=== PATIENT | female | born 1940 ===

== ENCOUNTER 2020-12-01 21:55 | Inpatient (IN) | payer MEDICARE ==
[2020-12-01] VITALS (8 sets, daily range): BP systolic 65–140; BP diastolic 38–96
[~2020-12-01] VITALS: Ht 167.6 cm; Wt 59.6 kg
[2020-12-01 22:49] LABS: BASOPHILS 0.4 % (0-2); EOSINOPHILS 1.2 % (0-7); HEMATOCRIT 34.2 % (36.0-48.0); HEMOGLOBIN 10.8 g/dL (12-16); LYMPHOCYTES 14.7 % (15-50); MCH 27.9 pg (26.0-34.0); MCHC 31.6 g/dL (31.0-37.0); MCV 88.1 fL (80.0-100.0); MEAN PLATELET VOLUME 7.6 fL (7.4-10.4); MONOCYTES 6.5 % (2-11); NEUTROPHILS 77.2 % (40-80); PLATELET COUNT 430 10x3/uL (130-400); RBC 3.88 10x6/uL (4.00-5.40); WBC 18.8 10x3/uL (4.8-10.8)
[2020-12-01] MEDS ORDERED: BAYER ASPIRIN325 MG PO (22:50)
[2020-12-01] MEDS ORDERED: PROAIR HFA8.5 G1 INH (22:51)
[2020-12-01] MEDS ORDERED: SYMBICORT 16010.2 GM INH (22:51)
[2020-12-01] MEDS ORDERED: NITROSTAT0.4 MG SL (22:52)
[2020-12-01] MEDS ORDERED: MULTI-DAY VITAM1 TAB PO (22:52)
[2020-12-01] MEDS ORDERED: RESTORIL15 MG PO (22:52)
[2020-12-01] MEDS ORDERED: IPRAT-ALBUT 0.5-3 ML UPD (22:58)
[2020-12-01] MEDS ORDERED: MELATONIN10 M1 PO (22:59)
[2020-12-01] MEDS ORDERED: TEMAZEPAM30 MG PO (22:59)
[2020-12-01] MEDS ORDERED: COLACE100 MG PO (23:00)
[2020-12-01] MEDS ORDERED: INCRUSE ELLI62.5 MCG INH (23:00)
[2020-12-01] MEDS ORDERED: ZYRTEC10 MG PO (23:00)
[2020-12-01] MEDS ORDERED: VENTOLIN HFA [SP8 GM INH (23:01)
[2020-12-01] MEDS ORDERED: ATARAX 25 MG TA25 MG PO (23:01)
[2020-12-01] MEDS ORDERED: SPIRIVA RESPIMAT4 GM INH (23:01)
[2020-12-01] MEDS ORDERED: LASIX40 MG PO (23:02)
[2020-12-01] MEDS ORDERED: ROPINIROLE HCL0.5 MG PO (23:02)
[2020-12-01] MEDS ORDERED: TRIAMCINOLONE A60 M1 TOPICAL (23:03)
[2020-12-01] MEDS ORDERED: PROTONIX40 MG PO (23:03)
[2020-12-01] MEDS ORDERED: PREDNISONE10 MG PO (23:03)
[2020-12-01] MEDS ORDERED: ZYVOX600 MG PO (23:04)
[2020-12-01] MEDS ORDERED: HYDROCODON-ACE1 EAC7 PO (23:05)
[2020-12-01 23:17] LABS: ANION GAP 14.3 mmol/L (8-16); CALCIUM 8.7 mg/dL (8.5-10.1); CARBON DIOXIDE 30.8 mmol/L (21.0-32.0); CREATININE - SERUM 3.1 mg/dL (0.6-1.3); POTASSIUM - SERUM 4.1 mmol/L (3.5-5.1)
[2020-12-01 23:37] LABS: ALBUMIN 2.4 g/dL (3.4-5.0); BILIRUBIN - TOTAL 0.65 mg/dL (0.2-1.3); PROTEIN - SERUM 6.4 g/dL (6.4-8.2)
[2020-12-01 23:39] LABS: TROPONIN-I 0.716 ng/mL (0.000-0.060)
[2020-12-02] VITALS (94 sets, daily range): BP systolic 57–142; BP diastolic 27–106; Ht 167.6 cm; Wt 59.6 kg
--- NOTE | 2020-12-02 00:21 | NUR ---
RECEIVED PATIENT FROM [facility] VIA EMS. PATIENT BROUGHT IN BY STRETCHER. ALERT, ORIENTED X 2. LOW BP, SEE FLOWSHEET. NOREPINEPHRINE STARTED BY EDP. ALSO EPINEPHRINE. HR IS SR 80S-90S. SAT 100%. PATIENT PLACED ON NON REBREATHER. UNABLE TO TOLERATE SWITCHING TO NC AT THIS TIME
--- NOTE | 2020-12-02 00:30 | NUR ---
PATIENT ARRIVED FROM ER. PATIENT IS ALERT AND ORIENTED, RESTING COMFORTABLY IN BED. PATIENT REMAINS ON A NRB AT 15L O2. RESPIRATIONS ARE SHALLOW. AT THIS TIME PATIENT HAS NO S/S OF DISTRESS. NO C/O PAIN. PATIENT WANTED TO MAKE SURE SHE HAD HER CALL LIGHT SO SHE DOESN'T MISS [facility]. NEEDS MET. CALL LIGHT WITHIN REACH. WILL CPOC.
--- NOTE | 2020-12-02 00:51 | NUR ---
DR SABILLON-CARDIOLOGY , DR. VIVEROS-NEPHROLOGY, AND DR. MOHAN-PULMONOLOGY NOTIFIED OF CONSULTS
[2020-12-02] MEDS ORDERED: VENTOLIN HFA [SP8 GM INH (00:55)
[2020-12-02 05:40] LABS: % SATURATION 7 % (15-55); IRON 10 ug/dl (35-150); TOTAL IRON BIND CAPACITY 128 ug/dl (260-445); UNSAT IRON BIND CAPACITY 118 ug/dl (150-375)
[2020-12-02 06:09] LABS: CKMB 2.7 U/L (0.0-3.6); CREATINE KINASE 29 UL (21-215); FERRITIN 121 ng/mL (3-244); MAGNESIUM - SERUM 1.5 mg/dL (1.8-2.4); TROPONIN-I 0.744 ng/mL (0.000-0.060)
[2020-12-02 06:25] LABS: APTT 31.2 SECONDS (22.8-39.4)
[2020-12-02 06:26] LABS: INR 1.32 (0.85-1.17); PROTIME 15.2 SECONDS (11.6-15.0)
--- NOTE | 2020-12-02 07:00 | NUR ---
RECEIVED BEDSIDE REPORT AND ASSUMED CARE OF PATIENT. PATIENT RESTING QUIETLY, WITH SNORING RESPIRATIONS, EASILY AROUSED BY VOICE, AND ALERT AND ORIENTED X 4. SPO2 - 97% ON NRB AT 15 LPM, CM - SR WITH OCCASSIONAL PVC'S. IV 20 GA TO RIGHT FA INFUSING NS AT 75 ML/HR, IV 20 GA TO LEFT FA NSL, CVL TO RIGHT GROIN INFUSING EPI AT 1 MCG/MIN (6ML/HR), LEVOPHED AT 30 MCG/MIN (56.3 ML/HR) AND NEOSYNEPHRINE AT 50 MCG/MIN (37.5 ML/HR). SCDS IN PLACE. HEAD TO TOE ASSESSMENT COMPLETED.
--- NOTE | 2020-12-02 07:33 | NUR ---
PATIENT ATTEMPTED ON HIGH FLOW NC AT 15 LPM, HOWEVER DESAT TO 84% AND NRB AT 15 LPM PLACED BACK ON PATIENT.
--- NOTE | 2020-12-02 09:21 | NUR ---
DR. MOHAN AT ROOM UPDATED AND EXAMINES PATIENT.
--- NOTE | 2020-12-02 09:32 | NUR ---
BENNY CERDA APRN AT ROOM FOR CARDIOLOGY CONSULT, UPDATED AND EXAMINES PATIENT.
--- NOTE | 2020-12-02 10:25 | NUR ---
SPOKE TO PATIENTS DAUGHTER JENISE WHO STATED PATIENT HAS HISTORY OF CHF AND COPD AND WAS JUST DISCHARGED FROM A HOSPITAL LAST WEEK FOR PNEUMONIA. OVER PAST WEEK HAS HAD INCREASED SWELLING TO HER LOWER EXTREMITIES.
--- NOTE | 2020-12-02 10:27 | NUR ---
MAY CATH PLACED AND UA/CULTURE SENT TO LAB.
--- NOTE | 2020-12-02 10:30 | NUR ---
DR. MOHAN PAGED TO NOTIFY OF D-DIMER OF 4.50.
[2020-12-02 10:35] LABS: BILIRUBIN NEGATIVE (NEGATIVE); KETONE NEGATIVE (NEGATIVE); NITRITE NEGATIVE (NEGATIVE); UROBILINOGEN NORMAL mg/dL (< 2)
[2020-12-02 10:37] LABS: BACTERIA FEW HPF (NONE SEEN); GRANULAR CAST RARE LPF (NONE SEEN); SQUAMOUS EPITHELIAL 0-5 HPF (0-4); WHITE CELLS - URINE 2 HPF (0-4)
--- NOTE | 2020-12-02 10:41 | NUR ---
DR. MOHAN RETURNED PAGE AND NOTIFIED OF D-DIMER 4.5 AND CONVERSATION WITH DAUGHTER, TO PLACE PATIENT ON BIPAP 14/8 AND 40%.
[2020-12-02 10:44] LABS: UDS - AMPHET NEGATIVE QUAL (NEGATIVE); UDS - BARB NEGATIVE QUAL (NEGATIVE); UDS - BENZO POSITIVE QUAL (NEGATIVE); UDS - COCAINE NEGATIVE QUAL (NEGATIVE); UDS - OPIATE POSITIVE QUAL (NEGATIVE); UDS - PCP NEGATIVE QUAL (NEGATIVE); UDS - THC NEGATIVE QUAL (NEGATIVE)
[2020-12-02 11:06] LABS: CKMB 3.2 U/L (0.0-3.6); CREATINE KINASE 35 UL (21-215); TROPONIN-I 0.723 ng/mL (0.000-0.060)
--- NOTE | 2020-12-02 11:06 | NUR ---
REASSESSMENT COMPLETED. PATIENT ON BIPAP 26/02 AT 60% WITH SPO2 - 92%, RR - 24, HR 118, ST ON CM, SCDS IN PLACE. MAY HAS BEEN PLACED WITH 550 STRAW COLORED UOP NOTED. AMIODARONE GTT STARTED PER CARDIOLOGY AT 1 MG/HR (33.3 ML/HR) FOR SIX HOURS THEN TO DECREASE TO 0.5 MG/HR AT 1700.
[2020-12-02 11:11] LABS: BASOPHILS 0.2 % (0-2); EOSINOPHILS 0.1 % (0-7); HEMATOCRIT 34.7 % (36.0-48.0); HEMOGLOBIN 10.7 g/dL (12-16); LYMPHOCYTES 11.3 % (15-50); MCH 27.8 pg (26.0-34.0); MCHC 30.9 g/dL (31.0-37.0); MEAN PLATELET VOLUME 8.1 fL (7.4-10.4); MONOCYTES 5.8 % (2-11); NEUTROPHILS 82.6 % (40-80); PLATELET COUNT 457 10x3/uL (130-400); RBC 3.85 10x6/uL (4.00-5.40); RDW 15.3 % (11.5-14.5); WBC 19.5 10x3/uL (4.8-10.8)
[2020-12-02 11:12] LABS: MCV 90.1 fL (80.0-100.0)
[2020-12-02 11:20] LABS: ANION GAP 19.8 mmol/L (8-16); CALCIUM 8.7 mg/dL (8.5-10.1); CARBON DIOXIDE 24.6 mmol/L (21.0-32.0); POTASSIUM - SERUM 4.4 mmol/L (3.5-5.1)
[2020-12-02 17:32] LABS: CKMB 3.3 U/L (0.0-3.6); CREATINE KINASE 66 UL (21-215)
[2020-12-02 17:33] LABS: TROPONIN-I 0.548 ng/mL (0.000-0.060)
--- NOTE | 2020-12-02 19:30 | NUR ---
REPORT REC'D AND CARE ASSUMED, REC'D PT ON BIPAP AT 80%, AWAKENS TO VERBAL STIMULI, CONFUSED TO HOW SHE GOT HERE, EXPLAINED TO PT HOW SHE GOT HERE, PT ASKING ABOUT HER FAMILY, RIGHT A/C PIV SALINE LOCKED, LEFT A/C PIV SALINE LOCKED, RIGHT GROIN TL, SEE FLOWSHEET FOR GTTS AND RATES, MAY PATENT DRAINING CLEAR YELLOW URINE, GENERALIZED EDEMA, SCAB/SORES NOTED TO RIGHT KNEE AND RIGHT GREAT TOE, BED IN LOW POSITION, CALL LIGHT IN REACH.
--- NOTE | 2020-12-02 20:23 | NUR ---
SPOKE WITH PT'S DAUGHTER JENISE WHO IS LEGALLY BLIND, DAUGHTER STATED SHE WOULD GET HERE WHEN SHE COULD FIND A RIDE. PT'S OLDEST SON PERCY DO CALLED AND SAID HE WOULD CALL BACK IN THE MORNING, HE WILL BE HERE TO VISIT WHEN HE CAN FIND A WAY DOWN HERE, UPDATES PROVIDED TO BOTH CHILDREN AND PT INFORMED OF THEIR PHONE CALLS.
--- NOTE | 2020-12-02 23:00 | NUR ---
PT WANTING A DRINK OF WATER, BIPAP REMOVED BRIEFLY TO ALLOW FOR PT TO HAVE A SIP OF WATER, O2 SAT DROPPED TO LOW 80'S AFTER ONLY A FEW MINUTES, PT STATES " I KNOW I AM DYING LET'S JUST GET IT OVER WITH", EXPLAINED TO PT THAT CONDITION HAD SLIGHTLY IMPROVED FROM THE TIME SHE WAS ADMITTED, ACCESSORY MUSCLES IN USE WHILE OFF BIPAP, BIPAP PLACED BACK ON PATIENT AND PT REPOSITIONED IN BED, WILL MONITOR FOR CHANGES.
[2020-12-03] VITALS (53 sets, daily range): BP systolic 74–126; BP diastolic 54–86
--- NOTE | 2020-12-03 01:30 | NUR ---
PT WANTING TO KNOW THE CURRENT TIME, INFORMED PT OF TIME AND PT ASSISTED WITH REMOTE CONTROL TO WATCH TV, SEEMS IN BETTER SPIRITS AT THIS ITME, BP 85-100 AT TIMES, CURRENT DRIPS CONTINUE PREVIOUSLY NOTED.
--- NOTE | 2020-12-03 05:20 | NUR ---
COMPLETE BATH AND LINEN CHANGE PROVIDED, PT REPOSITIONED UP IN BED FOR COMFORT, SIPS OF WATER PROVIDED, BED IN LOW POSITION, SR UP X 2 ,CALL LIGHT IN REACH
--- NOTE | 2020-12-03 07:00 | NUR ---
ASSESSMENT COMPLETE, PT SOB AT THIS TIME, O2 SAT 90%, ATTEMPTED TO PLACE PATIENT BACK ON BIPAP, PT REFUSING BIPAP
[2020-12-03 08:24] LABS: BASOPHILS 0.3 % (0-2); EOSINOPHILS 0.4 % (0-7); HEMATOCRIT 33.5 % (36.0-48.0); HEMOGLOBIN 10.5 g/dL (12-16); LYMPHOCYTES 10.5 % (15-50); MCH 27.9 pg (26.0-34.0); MCHC 31.5 g/dL (31.0-37.0); MCV 88.6 fL (80.0-100.0); MEAN PLATELET VOLUME 7.5 fL (7.4-10.4); MONOCYTES 5.4 % (2-11); NEUTROPHILS 83.4 % (40-80); PLATELET COUNT 454 10x3/uL (130-400); RBC 3.78 10x6/uL (4.00-5.40); RDW 15.2 % (11.5-14.5); WBC 15.9 10x3/uL (4.8-10.8)
--- NOTE | 2020-12-03 08:30 | NUR ---
PT STILL SOB, STILL REFUSING TO WEAR BIPAP
--- NOTE | 2020-12-03 08:32 | EC ---
PATIENT:CANDACE DO DATE OF SERVICE: 12/01/20 SEX: F MEDICAL RECORD: [id number] DATE OF : 44 LOCATION:[facility] D230 AGE OF PATIENT: 80 ADMISSION DATE: 12/01/20 REFERRING PHYSICIAN: INTERPRETING PHYSICIAN: HUE TAMAYO MD ECHOCARDIOGRAM REPORT ECHO CHARGES 4 ECHO COMPLETE Date: 12/02/20 CLINICAL DIAGNOSIS: CHF ECHOCARDIOGRAPHIC MEASUREMENTS (adult normal given) AC root (d.<3.7cm) 3.1 cm LV Septum d (<1.2 cm> 1.3 cm Valve Excursion 1.8 cm LV Septum (systole) 1.7 cm Left Atria (s.<4.0cm> 3.7 cm LVPW d(<1.2cm) 1.0 cm RV (d.<2.3cm) 2.7 cm LVPW (sytole) 1.3 cm LV diastole(<5.6CM) 4.5 cm MV E-F(>70mm/sec) cm LV systole 3.4 cm LVOT Diameter 1.4 cm MV exc.(>10mm) 1.2 cm Est.ejection fraction (50-75%) % DOPPLER: LVIT cm/sec A 164 cm/sec E 135 cm/sec LA cm/sec RVSP 81 mmHg LVOT 121 cm/sec AOP1/2T m/s Asc. Ao 149 cm/sec RVOT 61 cm/sec RA cm/sec PA 90 cm/sec AV Gradient Peak 8.9 mmHg AV Mean 4.7 mmHg AV Area 1.6 cm MV Gradient Peak 12.9 mmHg MV Mean 7.1 mmHg MV Area cm COMMENTS: Box Toe Flanger Stitchdowns: Missy DIXON Coater Smoking Pipe: 3 Dr. Levy TAPE# Pericardial Effusion N DATE OF SERVICE: Adequate 2D, color-flow imaging, spectral Doppler, and M-Mode Borderline LVH. LV internal dimensions are normal. LV appears to be mildly globally hypo with EF lower limits of normal to mildly reduced 45-50%. Aortic valve is sclerosed without evidence of stenosis by Doppler interrogation. Left atrium is normal at 3.7 cm. Mitral valve shows no prolapse. Trace MR. Right side is grossly normal. Moderate TR. RV systolic pressure estimated at greater than or equal to 81 mmHg. ECHOCARDIOGRAM REPORT [id number] CANDACE DO TRANSINT:[id number] Voice Confirmation ID: [id number] DOCUMENT ID: [id number] HUE TAMAYO MD at 0832 CC: [id number] DICTATION DATE: 12/02/201453 TACK PICKER: 12/02/20 1717 ADM IN [facility] [address] [place] [address]
[2020-12-03 08:44] LABS: ALBUMIN 2.3 g/dL (3.4-5.0); ANION GAP 15.3 mmol/L (8-16); BILIRUBIN - TOTAL 0.4 mg/dL (0.2-1.3); CARBON DIOXIDE 25.2 mmol/L (21.0-32.0); CREATININE - SERUM 2.3 mg/dL (0.6-1.3); MAGNESIUM - SERUM 1.5 mg/dL (1.8-2.4); PHOSPHOROUS 4.3 mg/dL (2.5-4.9); POTASSIUM - SERUM 4.5 mmol/L (3.5-5.1); VANCOMYCIN - RANDOM 18.2 ug/mL (10.0-20.0)
--- NOTE | 2020-12-03 09:15 | NUR ---
DR. MOHAN AND DR. BUTLER AT BEDSIDE, SPOKE WITH PT ABOUT POC, PT WISHES TO BE A DNI, ENCOURAGED PT TO WEAR BIPAP, PT STILL REFUSING
--- NOTE | 2020-12-03 10:30 | NUR ---
SPOKE AT LENGTH WITH PT ABOUT BENEFITS OF BIPAP, PT STILL REFUSING TO WEAR
--- NOTE | 2020-12-03 12:18 | NUR ---
PT SPO2 FLUCTUATING IN 86-90 RANGE AT THIS TIME. PT IS REFUSING TO WEAR BIPAP SAYING THE ONLY WAY SHE WOULD WEAR IT IS IF SHE CAN HAVE MEDICINE TO MAKE HER SLEEP. AFTER MANY ATTEMPTS TO TALK TO HER AND EXPRESSING THE BENEFITS OF WEARING BIPAP SHE STILL REFUSED.
--- NOTE | 2020-12-03 12:46 | NUR ---
Nutrition follow-up: Pt sitting on side of bed. Pt reports appetite has been poor due to medication causing bad taste in mouth; requested chocolate Boost. Diet advanced to renal per nurse Labs reviewed Wt: 149# BIPAP as needed. Will provide food choices with selective menus and honor food preferences within diet restrictions. RDN ordered Boost with meals and will monitor patients renal function closely. Follow-up on progress toward nutrition goals: 12/06/20
--- NOTE | 2020-12-03 14:00 | NUR ---
PT RESTING COMFORTABLY AT THIS TIME, VSS, CALL LIGHT IN REACH
--- NOTE | 2020-12-03 23:13 | NUR ---
PT WORE BIPAP APPROX 30 MIN AND THEN INSISTED IT BE REMOVED. DOES NOT WANT TO WEAR IT ANYMORE.
[2020-12-04] VITALS (23 sets, daily range): BP systolic 94–121; BP diastolic 54–86
--- NOTE | 2020-12-04 01:52 | NUR ---
PT COMPLAINS OF PAIN 11/22. REQUESTING NORCO. VIVEK SCOTT MADE AWARE. VIVEK SAID PT CAN NOT RECEIVE NORCO AT THE TIME DUE TO MEDICAL CONDITIONS. TYLENOL OFFERED
[2020-12-04 06:35] LABS: BASOPHILS 0.4 % (0-2); EOSINOPHILS 1.1 % (0-7); HEMATOCRIT 28.3 % (36.0-48.0); HEMOGLOBIN 9.4 g/dL (12-16); LYMPHOCYTES 17.1 % (15-50); MCH 28.6 pg (26.0-34.0); MEAN PLATELET VOLUME 7.8 fL (7.4-10.4); MONOCYTES 5.2 % (2-11); NEUTROPHILS 76.2 % (40-80); PLATELET COUNT 404 10x3/uL (130-400); RBC 3.27 10x6/uL (4.00-5.40); RDW 15.4 % (11.5-14.5)
[2020-12-04 06:44] LABS: MCV 86.6 fL (80.0-100.0)
[2020-12-04 06:53] LABS: ALBUMIN 2.1 g/dL (3.4-5.0); ANION GAP 11.5 mmol/L (8-16); BILIRUBIN - TOTAL 0.34 mg/dL (0.2-1.3); CALCIUM 8.5 mg/dL (8.5-10.1); CARBON DIOXIDE 28.1 mmol/L (21.0-32.0); CREATININE - SERUM 2.2 mg/dL (0.6-1.3); MAGNESIUM - SERUM 1.3 mg/dL (1.8-2.4); PROTEIN - SERUM 5.5 g/dL (6.4-8.2); VANCOMYCIN - RANDOM 25.5 ug/mL (10.0-20.0)
[2020-12-04 06:56] LABS: POTASSIUM - SERUM 3.6 mmol/L (3.5-5.1)
--- NOTE | 2020-12-04 16:39 | NUR ---
PATIENT FEELS BAD, DOES NOT FEEL LIKE EATING, WANTS TO GET UP IN CHAIR AT BEDSIDE INSTRUCTED SHE HAS A FEMEROL CENTRAL LINE AND CAN NOT GET UP OR BEND RIGHT LEG. VERBALIZED UNDERSTANDING. SLEEP WELL OFF AND ON TODAY. FAMILY HERE TODAY UPDATES GIVEN. MAY CATH PATENT. DOBUTAMINE INFUSING AT 5 MCG/KG/MIN. NS KVO. MONITOR ST. COUGHING UP SMALL AMOUNT OF DARK RED SPUTUM. DRINKING FLUIDS, CHOCOLATE BOOST
--- NOTE | 2020-12-04 17:00 | NUR ---
DR. MOHAN NOTIFIED OF PATIENT COUGHING UP SMALL AMOUNT OF BRIGHT RED BLOOD. PATIENT VERY ANXIOUS, THINKS IS GOING TO . CT SCAN ORDERED.
--- NOTE | 2020-12-04 21:21 | NUR ---
DR MOHAN AWARE OF PATIENT COUGHED UP SMALL AMOUNT OF BLOOD. CT WAS DONE. DR MOHAN ORDERED TO MAKE SURE HUMIDIFIER IS ON. NO OTHER ORDERS AT THIS TIME.
[2020-12-05] VITALS (24 sets, daily range): BP systolic 91–132; BP diastolic 55–88
[2020-12-05 06:13] LABS: BASOPHILS 0.5 % (0-2); EOSINOPHILS 1.5 % (0-7); HEMATOCRIT 29.1 % (36.0-48.0); HEMOGLOBIN 9.8 g/dL (12-16); LYMPHOCYTES 20.3 % (15-50); MCH 28.7 pg (26.0-34.0); MCHC 33.5 g/dL (31.0-37.0); MCV 85.6 fL (80.0-100.0); MEAN PLATELET VOLUME 7.9 fL (7.4-10.4); MONOCYTES 4.5 % (2-11); NEUTROPHILS 73.2 % (40-80); PLATELET COUNT 478 10x3/uL (130-400); RDW 14.9 % (11.5-14.5); WBC 9.5 10x3/uL (4.8-10.8)
[2020-12-05 06:15] LABS: ALBUMIN 2.1 g/dL (3.4-5.0); ANION GAP 10.9 mmol/L (8-16); BILIRUBIN - TOTAL 0.41 mg/dL (0.2-1.3); CALCIUM 8.6 mg/dL (8.5-10.1); CARBON DIOXIDE 31.4 mmol/L (21.0-32.0); CREATININE - SERUM 2.1 mg/dL (0.6-1.3); POTASSIUM - SERUM 3.3 mmol/L (3.5-5.1); PROTEIN - SERUM 5.6 g/dL (6.4-8.2); VANCOMYCIN - RANDOM 20.1 ug/mL (10.0-20.0)
[2020-12-05 06:16] LABS: MAGNESIUM - SERUM 2.4 mg/dL (1.8-2.4)
--- NOTE | 2020-12-05 07:10 | NUR ---
REPORT RECEIVED FROM FLANGING OPERATOR AND PATIENT CARE ASSUMED. PATIENT LAYING IN BED ON BACK AWAKE, ALERT AND ORIENTED X 4 . VSS. ALL LINES TUBES AND MAY CHECKED. PATIENT DENIES ANY NEEDS OR PAIN. WILL CONTINUE WITH PLAN OF CARE. SR UP X 2 BED IN LOW POSITION AND CALL LIGHT IN REACH.
--- NOTE | 2020-12-05 08:58 | NUR ---
PATIENT SON PERCY CALLED. DID NOT HAVE CODE. TOLD SHE WAS STABLE AND GAVE PATIENT MESSAGE THAT SON HAD CALLED.
--- NOTE | 2020-12-05 10:59 | NUR ---
SPOKE WITH PATIENTS KAYLEY VOSS WHO HAD SECURITY CODE. ANSWERED QUESTIONS TO PATIENT SATISFACTION.
--- NOTE | 2020-12-05 13:28 | NUR ---
PATIENT DID NOT WANT TO EAT TURKEY DRESSING PLATE. REQUESTED CHICKEN SALAD SANDWICH. PATIENT TOOK A FEW BITES AND STATED THAT IT TASTED HORRIBLE AND REQUESTED DIRECTOR OF SOCIAL SERVICES SALAD. THIS NURSE BROUGHT IN DIRECTOR OF SOCIAL SERVICES SALAD OPENED TRAY AND PATIENT STATED THAT IT SMELLS HORRIBLE AND TO PLEASE TAKE OUT OF ROOM. OFFERED OTHER SUBSTITUTES INCLUDING BOOST PATIENT REFUSED.
--- NOTE | 2020-12-05 14:30 | NUR ---
PATIENT COMPLAINS OF NAUSEA. GAVE ZOFRAN ORDERED. WILL CONITNUE TO MONITOR. SR UP X 2 BED IN LOW POSITION AND CALL LIGHT IN REACH.
--- NOTE | 2020-12-05 17:33 | NUR ---
PATIENT REQUESTED FRUIT AND COTTAGE CHEESE. PATIENT TOOK A BITE OF COTTAGE CHEESE AND STATED THAT ITS TERRIBLE AND TO TAKE TRAY AWAY. SPENT SEVERAL MINUTES WITH PATIENT ENCOURAGING TO EAT AND OFFERING ALTERNATIVES. PATIENT STATES FOOD IS HORRIBLE HERE AND SHES NOT HUNGRY ANYWAY. OFFERED BATH AND LINEN CHANGE AND PATIENT REFUSED WELL. WILL CONTINUE TO MONITOR. SR UP X 2 BED IN LOW POSITION AND CALL LIGHT IN REACH.
[2020-12-06] VITALS (24 sets, daily range): BP systolic 69–118; BP diastolic 45–74
--- NOTE | 2020-12-06 02:12 | NUR ---
PT COMPLAINS OF COUGH. ALREADY COMPLAINS OF NAUSEA WITH ZOFRAN GIVEN. REAL ESTATE BROKER CALLED AND RECEIVED ORDER FOR TESSALON MITRA 100MG TID PRN.
[2020-12-06 05:03] LABS: BASOPHILS 0.8 % (0-2); EOSINOPHILS 2.3 % (0-7); HEMATOCRIT 28.3 % (36.0-48.0); HEMOGLOBIN 9.5 g/dL (12-16); LYMPHOCYTES 26.8 % (15-50); MCH 28.9 pg (26.0-34.0); MCHC 33.5 g/dL (31.0-37.0); MCV 86.4 fL (80.0-100.0); MEAN PLATELET VOLUME 7.9 fL (7.4-10.4); MONOCYTES 4.6 % (2-11); NEUTROPHILS 65.5 % (40-80); PLATELET COUNT 527 10x3/uL (130-400); RBC 3.28 10x6/uL (4.00-5.40); RDW 15.1 % (11.5-14.5); WBC 9.1 10x3/uL (4.8-10.8)
[2020-12-06 05:22] LABS: ANION GAP 4.2 mmol/L (8-16); BILIRUBIN - TOTAL 0.45 mg/dL (0.2-1.3); CALCIUM 8.2 mg/dL (8.5-10.1); CARBON DIOXIDE 35.4 mmol/L (21.0-32.0); CREATININE - SERUM 2.2 mg/dL (0.6-1.3); MAGNESIUM - SERUM 1.9 mg/dL (1.8-2.4); POTASSIUM - SERUM 3.6 mmol/L (3.5-5.1); PROTEIN - SERUM 5.5 g/dL (6.4-8.2); VANCOMYCIN - RANDOM 16.1 ug/mL (10.0-20.0)
--- NOTE | 2020-12-06 13:05 | NUR ---
Nutrition follow-up: Pt very unhappy with meals; food preferences are being honored but she is complaining of the food tasting horrible and sends everything back to the kitchen. Pt reports nausea with poor appetite. Pt asked for and recieved chocolate Boost with meals that she is also refusing. Diet order: Renal PO intake ~25% of some meals Labs reviewed Wt: 148# No BM charted Recommend: Stool softener Follow-up: 12/08/20
--- NOTE | 2020-12-06 19:00 | NUR ---
BEDSIDE REPORT COMPLETED WITH OFF GOING NURSE. PT IS LAYING IN BED AT THIS TIME. PT REQUESTS A PUDDING, PUDDING PROVIDED. NO OTHER NEEDS VOICED AT THIS TIME. NO S/S OF DISTRESS. WILL CONTINUE TO MONITOR.
[2020-12-07] VITALS (14 sets, daily range): BP systolic 88–125; BP diastolic 43–70
--- NOTE | 2020-12-07 00:01 | NUR ---
antibx completed PIV saline locked, pt denies needs
[2020-12-07 05:11] LABS: BASOPHILS 1.1 % (0-2); EOSINOPHILS 3.2 % (0-7); HEMATOCRIT 29.1 % (36.0-48.0); HEMOGLOBIN 9.7 g/dL (12-16); LYMPHOCYTES 28.7 % (15-50); MCH 28.8 pg (26.0-34.0); MCHC 33.4 g/dL (31.0-37.0); MCV 86.2 fL (80.0-100.0); MEAN PLATELET VOLUME 7.9 fL (7.4-10.4); MONOCYTES 6.2 % (2-11); NEUTROPHILS 60.8 % (40-80); PLATELET COUNT 556 10x3/uL (130-400); RBC 3.38 10x6/uL (4.00-5.40); RDW 15.5 % (11.5-14.5); WBC 10.2 10x3/uL (4.8-10.8)
[2020-12-07 05:53] LABS: ANION GAP 8.4 mmol/L (8-16); BILIRUBIN - TOTAL 0.37 mg/dL (0.2-1.3); CARBON DIOXIDE 35.3 mmol/L (21.0-32.0); CREATININE - SERUM 2.2 mg/dL (0.6-1.3); MAGNESIUM - SERUM 1.8 mg/dL (1.8-2.4); POTASSIUM - SERUM 3.7 mmol/L (3.5-5.1); PROTEIN - SERUM 5.5 g/dL (6.4-8.2); VANCOMYCIN - RANDOM 21.5 ug/mL (10.0-20.0)
--- NOTE | 2020-12-07 08:00 | NUR ---
PT SITTING UP ON THE SIDE OF THE BED EATING BREAKFAST, TOLERATING WELL, NO NEEDS VOICED, CALL LIGHT IN REACH, WILL MONITOR
--- NOTE | 2020-12-07 09:40 | NUR ---
DR DAVALOS HERE SEEING PATIENT
--- NOTE | 2020-12-07 10:15 | NUR ---
pt sleeping at this time
--- NOTE | 2020-12-07 14:23 | NUR ---
REPORT CALLED TO ERNESTO LORA ON MED 2
--- NOTE | 2020-12-07 14:39 | NUR ---
PT TRANSFERRED TO 2134 VIA WHEELCHAIR ON 4LNC, PARMINDER SENT WITH PATIENT, NO ACUTE DISTRESS NOTED AT THIS TIME, CALL LIGHT IN REACH
--- NOTE | 2020-12-07 18:18 | NUR ---
PATIENT HAS BEEN STATING SHE WAS MISTREATED IN ICU AND IS NOW BEING MISTREATED ON MED2, SHE STATES NOONE HAS BEEN IN HER ROOM AND SHE DOESNT KNOW WHY SHE IS HERE, SHE STATES SHE IS BEING SLIDED BECAUSE SHE IS A DNI, PATIENT CALLED DAUGHTER AND TOLD HER THIS WELL, JASWANT TELECOMMUNICATIONS LINE MECHANIC WAS NOTIFIED AND EXPLAINED EVERYTHING TO THE PATIENT AND THE PATIENT HAS CONTINUED TO SAY THIS STUFF, THE DAUGHTER HAS YELLED AT THE HOME HEALTH REGISTERED NURSE AND I, SPRING INSPECTOR HAS BEEN NOTIFIED WELL, I HAVE BEEN IN THE ROOM SEVERAL TIMES, HAS THE AIDS AND JASWANT TELECOMMUNICATIONS LINE MECHANIC, TEA AND COFFEE WITH 6 SUGARS EACH HAS BEEN PROVIDED, TEA FROM THE KITCHEN AND A DINNER TRAY HAS BEEN PROVIDED, ANGIE CARDENAS
--- NOTE | 2020-12-07 18:49 | NUR ---
pt sitting on side of bed, asuumption of care rounds at this time. pt denies any needs, will conttinue to monitor
--- NOTE | 2020-12-07 19:30 | NUR ---
pt noted to be ling in bed appears asleep, no acute distress will continue to monitor
--- NOTE | 2020-12-07 20:45 | NUR ---
pt sitting on side of bed, meds given ot requesting more allporuinol. paged CHARGE ATTENDANT extrusion operator at pt request.
--- NOTE | 2020-12-07 21:00 | NUR ---
spoke to Christopher DOYLE pt with poor kidney function allopurinol can not be increased, and pt at the max melatonin, can not have 30 mg as requested. pt educated on this and reports she knew that was what the answer would be because she had already asked the doctor before. Offered pt pen and paper to record questions or issues for MD/SECOND TIME WORKER, pt declined. pt assisted,madi sullivan, to BSC
--- NOTE | 2020-12-07 22:30 | NUR ---
pt noted to be lying in bed, breahting evenly appears asleep
--- NOTE | 2020-12-07 23:10 | NUR ---
scheduled antibx given, right wrist piv flushed no redness, swelling or discharge noted. will continue to monitor
--- NOTE | 2020-12-08 02:00 | NUR ---
pt requesting a 2nd cup of coffee, coffee and sugar provided to pt
[2020-12-08 03:47] VITALS: BP 140/77
--- NOTE | 2020-12-08 05:15 | NUR ---
pt noted to be sitting on side of bed, heard speaking to someone on the phone, no distress noted. will continue to monitor
[2020-12-08 07:27] LABS: HEMATOCRIT 30.9 % (36.0-48.0); HEMOGLOBIN 10.2 g/dL (12-16); MCH 28.4 pg (26.0-34.0); MCV 85.9 fL (80.0-100.0); MEAN PLATELET VOLUME 7.8 fL (7.4-10.4); PLATELET COUNT 629 10x3/uL (130-400); WBC 9.3 10x3/uL (4.8-10.8)
[2020-12-08 07:47] LABS: ALBUMIN 2.2 g/dL (3.4-5.0); ANION GAP 6.3 mmol/L (8-16); BILIRUBIN - TOTAL 0.42 mg/dL (0.2-1.3); CALCIUM 8.6 mg/dL (8.5-10.1); CARBON DIOXIDE 35.4 mmol/L (21.0-32.0); POTASSIUM - SERUM 3.7 mmol/L (3.5-5.1); PROTEIN - SERUM 5.8 g/dL (6.4-8.2); VANCOMYCIN - RANDOM 15.2 ug/mL (10.0-20.0)
[2020-12-08 08:00] VITALS: BP 91/49
--- NOTE | 2020-12-08 08:42 | NUR ---
PATIENT IS DEPRESSED AND TALKED TO TREE TRIMMER HELPER ABOUT GETTING MEDICATION FOR DEPRESION RELATED TO END OF LIFE AND BEING A DNR, JASWANT JACKSON PELLET PREPARATION OPERATOR AND MANUEL WILL REVIEW THE CHARTS AND SEE WHAT WE CAN PRESCRIBE
[2020-12-08 11:16] LABS: ANISOCYTOSIS OCC; EOSINOPHILS 1 % (0-7); HYPOCHROMASIA OCC; LYMPHOCYTES 30 % (15-50); MONOCYTES 11 % (2-11); NEUTROPHILS 53 % (40-80); PLATELET ESTIMATE INCREASED
--- NOTE | 2020-12-08 14:14 | NUR ---
Nutrition Reassessment/Follow-up: Pt reports eating well this AM; observed majority of breakfast eaten. C/o intermittent nausea, as well as altered taste (2/2 meds). Does not like Boost and requested Ensure instead. Diet: Regular, Boost TID Wt: 134.8# (12/08); 146.6# (12/07); 139.9# (12/02) Labs noted: Na 132, BUN 23, Cre 2.0, GFR 25, Alb 2.2 Meds noted: Lasix, Pepcid, Questran, Zofran Est needs: 6938-3512 kcal/day (25-30 kcal/kg actual BW) 35-50 g protein/day (0.6-0.8 g/kg actual BW) 0563-6065 mL fluid/day (1 mL/kcal) or per MD Nutrition Diagnosis: -Altered nutrition-related lab values R/T kidney dysfunction AEB BUN 23, Cre 2.0, GFR 25. -Potential for inadequate energy intake R/T intermittent nausea, altered taste. Nutrition Goals: -PO intake >=75% avg of meals/snacks. -Meet est fluid needs without fluid overload. -Stable dry wt. Nutrition Intervention: -Encourage PO intake and honor food preferences within diet restrictions. -Change Boost to Ensure per pt request. -Monitor wt. -RD will follow up within 5-7 days if pt still admitted.
--- NOTE | 2020-12-08 15:08 | NUR ---
PATIENT IV IS LEAKING, NEW IV STARTED IN UPPER FOREARM X1 STICK, NO FURTHER NEEDS AT THIS TIME, CLIR, BLP
[2020-12-08 15:30] VITALS: BP 100/54
--- NOTE | 2020-12-08 16:27 | NUR ---
REHAB PRESCREEN ORDER RECEIVED. PATIENT IS A MANAGED MEDICARE AND WILL REQUIRE AN OCCUPATIONAL THERAPY EVAL IN ORDER TO START THE PREAUTHORIZATION PROCESS. I WILL LOOK BACK IN THE CHART TOMORROW TO SEE IF COMPLETED AND THEN PROCEED WITH THE REST OF HER SCREEN. THANK YOU FOR THE REFERRAL. CARMELA NEFF RN CLINICAL LIAISON, INPATIENT REHAB.
--- NOTE | 2020-12-08 19:30 | NUR ---
PT SETTING UP ON SIDE OF BED, PT C/O NAUSEA, ZOFRAN ODT GIVEN PER ORDER. PT RESP EVEN AND UNLABORED, NO DISTRESS NOTED, CL IN REACH SR UP X 1.
[2020-12-08 20:39] VITALS: BP 128/56
[2020-12-08 23:36] VITALS: BP 88/40
[2020-12-09 04:17] VITALS: BP 89/46
--- NOTE | 2020-12-09 04:58 | NUR ---
I have reviewed this patient and I concur with the Shift Assessment completed by the Licensed Practical Nurse today this shift.
[2020-12-09 06:03] LABS: EOSINOPHILS 1.4 % (0-7); HEMATOCRIT 30.1 % (36.0-48.0); HEMOGLOBIN 9.9 g/dL (12-16); LYMPHOCYTES 29.8 % (15-50); MCH 28.6 pg (26.0-34.0); MCV 86.7 fL (80.0-100.0); MONOCYTES 4.8 % (2-11); PLATELET COUNT 617 10x3/uL (130-400); RBC 3.47 10x6/uL (4.00-5.40); RDW 15.3 % (11.5-14.5); WBC 9.1 10x3/uL (4.8-10.8)
[2020-12-09 06:19] LABS: ALBUMIN 2.3 g/dL (3.4-5.0); ANION GAP 6.5 mmol/L (8-16); BILIRUBIN - TOTAL 0.44 mg/dL (0.2-1.3); CALCIUM 8.5 mg/dL (8.5-10.1); CARBON DIOXIDE 35.2 mmol/L (21.0-32.0); CREATININE - SERUM 1.9 mg/dL (0.6-1.3); POTASSIUM - SERUM 3.7 mmol/L (3.5-5.1); VANCOMYCIN - RANDOM 23.6 ug/mL (10.0-20.0)
[2020-12-09 08:21] VITALS: BP 101/53
--- NOTE | 2020-12-09 09:53 | NUR ---
PATIENT IS STILL PENDING HER OCCUPATIONAL EVALUATION. I WILL ASK FOR HER TO BE BUMPED TO THE TOP OF THE LIST IF POSSIBLE. CARMELA NEFF RN CLINICAL LIAISON, INPATIENT REHAB.
[2020-12-09 12:18] VITALS: BP 119/54
--- NOTE | 2020-12-09 13:53 | NUR ---
I HAVE COMPLETED A CHART REVIEW. PATIENT IS INCONSISTENT WITH PARTICIPATING WITH THERAPY AND IS TELLING THE THERAPIST SHE DOES NOT WANT TO COME TO REHAB. SHE STATED THAT SHE WANTS TO GO HOME WHERE HER SPOUSE AND SON ARE. I HAVE LEFT A VOICEMAIL FOR JOB JAIME RN CM TO PLEASE CALL ME. I WILL TRY BEFORE END OF DAY TO GO AND SPEAK WITH PATIENT, BUT IF I SUBMIT TO HER MANAGED MEDICARE AT THIS POINT IN TIME, SHE WILL BE DENIED. I WILL CONTINUE TO FOLLOW. THANK YOU FOR THIS REFERRAL. CARMELA NEFF RN CLINICAL LIAISON, INPATIENT REHAB.
[2020-12-09 16:47] VITALS: BP 115/52
[2020-12-09 19:16] VITALS: BP 108/64
--- NOTE | 2020-12-09 19:30 | NUR ---
PT IN BED, AAO X 2, RESP EVEN AND UNLABORED, NO DISTRESS NOTED, CL IN REACH, SR UP X 2.
[2020-12-10 00:54] VITALS: BP 102/56
[2020-12-10 05:06] VITALS: BP 91/50
[2020-12-10 05:28] LABS: BASOPHILS 1.1 % (0-2); EOSINOPHILS 0.9 % (0-7); HEMATOCRIT 29.9 % (36.0-48.0); LYMPHOCYTES 30.7 % (15-50); MCH 28.9 pg (26.0-34.0); MCHC 33.5 g/dL (31.0-37.0); MCV 86.1 fL (80.0-100.0); MEAN PLATELET VOLUME 7.8 fL (7.4-10.4); MONOCYTES 7.1 % (2-11); NEUTROPHILS 60.2 % (40-80); PLATELET COUNT 592 10x3/uL (130-400); RBC 3.47 10x6/uL (4.00-5.40); RDW 14.9 % (11.5-14.5); WBC 8.7 10x3/uL (4.8-10.8)
[2020-12-10 06:13] LABS: ALBUMIN 2.3 g/dL (3.4-5.0); BILIRUBIN - TOTAL 0.36 mg/dL (0.2-1.3); CALCIUM 9.1 mg/dL (8.5-10.1); CARBON DIOXIDE 33.4 mmol/L (21.0-32.0); CREATININE - SERUM 1.9 mg/dL (0.6-1.3); PROTEIN - SERUM 5.5 g/dL (6.4-8.2); VANCOMYCIN - RANDOM 14.9 ug/mL (10.0-20.0)
[2020-12-10 06:14] LABS: POTASSIUM - SERUM 4.4 mmol/L (3.5-5.1)
--- NOTE | 2020-12-10 07:13 | NUR ---
RECEIVE SHIFT REPORT. SITTING UP ON SIDE OF BED. DENIES ANY NEEDS AT THIS TIME. WILL CONTINUE POC AND SAFETY PRECAUTIONS. CALL LIGHT IN REACH.
[2020-12-10 08:55] VITALS: BP 90/45
[2020-12-10 12:00] VITALS: BP 111/53
--- NOTE | 2020-12-10 16:10 | NUR ---
OT NOTE: PT COMPLETED ADL MOB WITH RW REQUIRED CGA. PT COMPLETED DEEPA SHOES WITH SETUP. PT COMPLETED HAIR GROOMING WITH SETUP. PT REQUIRED MIN A WITH GOWN. [phone] DANNA FRIAS COTA
--- NOTE | 2020-12-10 19:30 | NUR ---
PT IN BED, AAO X 2, RESP EVEN AND UNLABORED, NO DISTRESS NOTED, CL IN REACH, SR UP X 2.
[2020-12-10 20:23] VITALS: BP 92/51
[2020-12-10 23:44] VITALS: BP 98/52
[2020-12-11 04:59] VITALS: BP 96/54
--- NOTE | 2020-12-11 05:31 | NUR ---
RECEIVED CALL FROM RN STATING THAT PATIENT WAS REQUESTING A BREATHING TX. HE ALSO STATED THAT PATIENT RECEIVE TX AT HOME AND THAT SHE HAD A PRN XOPENIX. UPON ENTERY INTO PATIENTS ROOM RN HAD ALREADY PULLED THE MEDICATION AND HAD IT STARTED. FLOW METER RUNNING XOPENIX WAS SET AT 15 LPM. DURING MY ASSESSMENT NO DISTRESS NOTED. SPO2 85% ON 4 LPM, BS's DECREASED WITH CRACKLES. PATIENT DID STATE THAT SHE WAS SOB AFTER WAKING AND GETTING UP TO GO TO THE BATHROOM. POST TX PATIENT SPO2 93% ON 4 LPM. PT STATED THAT SHE WAS FEELING BETTER.
[2020-12-11 06:57] LABS: ALBUMIN 2.1 g/dL (3.4-5.0); ANION GAP 7.2 mmol/L (8-16); BILIRUBIN - TOTAL 0.36 mg/dL (0.2-1.3); CALCIUM 8.9 mg/dL (8.5-10.1); CARBON DIOXIDE 33.8 mmol/L (21.0-32.0); CREATININE - SERUM 1.6 mg/dL (0.6-1.3); PROTEIN - SERUM 5.6 g/dL (6.4-8.2)
[2020-12-11 07:07] LABS: EOSINOPHILS 0.4 % (0-7); HEMATOCRIT 29.4 % (36.0-48.0); HEMOGLOBIN 9.6 g/dL (12-16); LYMPHOCYTES 24.8 % (15-50); MCH 28.6 pg (26.0-34.0); MCHC 32.5 g/dL (31.0-37.0); MEAN PLATELET VOLUME 8.2 fL (7.4-10.4); MONOCYTES 9.2 % (2-11); NEUTROPHILS 64.6 % (40-80); PLATELET COUNT 568 10x3/uL (130-400); RBC 3.33 10x6/uL (4.00-5.40); RDW 15.2 % (11.5-14.5)
[2020-12-11 07:29] LABS: MCV 88.1 fL (80.0-100.0)
--- NOTE | 2020-12-11 08:00 | NUR ---
PT RECEIVED AWAKE AND ALERT. COMPLAINTS OF PAIN TO HIP, TOO SOON FOR NEXT PAIN MED. BP ALSO RUNNING LOW. WILL HAVE MD OR VENETIAN BLIND MACHINE OPERATOR VISIT AND SEE ABOUT COMING UP WITH A PLAN.
[2020-12-11 08:55] VITALS: BP 141/73; BP 87/46
[2020-12-11 11:51] VITALS: BP 88/48
[2020-12-11 15:54] VITALS: BP 101/60
[2020-12-11 20:05] VITALS: BP 107/52
[2020-12-12 00:51] VITALS: BP 122/63
[2020-12-12 06:34] VITALS: BP 122/63
--- NOTE | 2020-12-12 07:00 | NUR ---
RECEIVED REPORT. ASSUMED CARE OF PATIENT. CALL LIGHT WITHIN REACH. PATIENT RESTING WITH EYES CLOSED, BEDSIDE SHIFT REPORT COMPLETE, WHITE BOARD UPDATED. NO DISTRESS.
[2020-12-12 08:01] LABS: BASOPHILS 0.7 % (0-2); EOSINOPHILS 0.4 % (0-7); HEMATOCRIT 28.4 % (36.0-48.0); HEMOGLOBIN 9.3 g/dL (12-16); LYMPHOCYTES 24.2 % (15-50); MCH 28.8 pg (26.0-34.0); MCHC 32.7 g/dL (31.0-37.0); MCV 88.2 fL (80.0-100.0); MONOCYTES 9.6 % (2-11); NEUTROPHILS 65.1 % (40-80); PLATELET COUNT 577 10x3/uL (130-400); RBC 3.22 10x6/uL (4.00-5.40); RDW 15.1 % (11.5-14.5); WBC 8.3 10x3/uL (4.8-10.8)
[2020-12-12 08:13] LABS: ALBUMIN 2.1 g/dL (3.4-5.0); ANION GAP 5.1 mmol/L (8-16); BILIRUBIN - TOTAL 0.3 mg/dL (0.2-1.3); CALCIUM 8.9 mg/dL (8.5-10.1); CARBON DIOXIDE 34.4 mmol/L (21.0-32.0); CREATININE - SERUM 1.4 mg/dL (0.6-1.3); POTASSIUM - SERUM 4.5 mmol/L (3.5-5.1); PROTEIN - SERUM 5.6 g/dL (6.4-8.2)
[2020-12-12 10:02] VITALS: BP 111/45
--- NOTE | 2020-12-12 10:30 | NUR ---
HEATED UP AM MEAL X 2, PROVIDED FRESH SWEET TEA, PATIENT NOW NAUSEATED SO MEDICATED WITH ZOFRAN. PATIENT RESTING IN BED. CALL LIGHT WITHIN REACH. NO DISTRESS.
[2020-12-12 12:28] VITALS: BP 106/51
--- NOTE | 2020-12-12 13:25 | NUR ---
MEDICATED FOR PAIN AT THIS TIME. PATIENT SITTING TO SIDE OF BED. NO DISTRESS. CALL LIGHT WITHIN REACH.
[2020-12-12 16:11] VITALS: BP 104/56
[2020-12-12 19:59] VITALS: BP 102/54
[2020-12-13 00:33] VITALS: BP 88/45
[2020-12-13 05:26] VITALS: BP 105/57
[2020-12-13 07:09] LABS: BASOPHILS 1.1 % (0-2); EOSINOPHILS 0.3 % (0-7); HEMOGLOBIN 9.4 g/dL (12-16); MCH 28.4 pg (26.0-34.0); MCHC 32.3 g/dL (31.0-37.0); MCV 87.8 fL (80.0-100.0); MEAN PLATELET VOLUME 8.2 fL (7.4-10.4); MONOCYTES 9.3 % (2-11); NEUTROPHILS 63.3 % (40-80); PLATELET COUNT 549 10x3/uL (130-400); RBC 3.31 10x6/uL (4.00-5.40); RDW 15.2 % (11.5-14.5); WBC 8.5 10x3/uL (4.8-10.8)
[2020-12-13 08:17] LABS: ALBUMIN 2.2 g/dL (3.4-5.0); ANION GAP 8.3 mmol/L (8-16); BILIRUBIN - TOTAL 0.3 mg/dL (0.2-1.3); CALCIUM 9.3 mg/dL (8.5-10.1); CARBON DIOXIDE 33.4 mmol/L (21.0-32.0); CREATININE - SERUM 1.6 mg/dL (0.6-1.3); POTASSIUM - SERUM 4.7 mmol/L (3.5-5.1); PROTEIN - SERUM 5.8 g/dL (6.4-8.2)
[2020-12-13 09:00] VITALS: BP 102/57
--- NOTE | 2020-12-13 14:08 | NUR ---
OT NOTE: PT C/O OF LE PAIN. NURSING AWARE. PT COMPLETED BED MOBILITY WITH SPV. PT COMPLETED HAIR GROOMING WITH SETUP. PT COMPLETED FACE HYGIENE WITH SETUP. CL IN REACH. [phone] THANK YOU,JANET TRACEY
[2020-12-13 20:25] VITALS: BP 102/36
[2020-12-14 00:45] VITALS: BP 98/56
[2020-12-14 04:50] VITALS: BP 103/51
[2020-12-14 05:47] LABS: BASOPHILS 1.4 % (0-2); EOSINOPHILS 0.4 % (0-7); HEMATOCRIT 29.3 % (36.0-48.0); HEMOGLOBIN 9.5 g/dL (12-16); LYMPHOCYTES 27.1 % (15-50); MCH 28.2 pg (26.0-34.0); MCHC 32.3 g/dL (31.0-37.0); MCV 87.3 fL (80.0-100.0); MEAN PLATELET VOLUME 7.8 fL (7.4-10.4); NEUTROPHILS 59.1 % (40-80); PLATELET COUNT 529 10x3/uL (130-400); RBC 3.36 10x6/uL (4.00-5.40); RDW 15.3 % (11.5-14.5); WBC 7.2 10x3/uL (4.8-10.8)
[2020-12-14 06:18] LABS: ALBUMIN 2.1 g/dL (3.4-5.0); ANION GAP 7.5 mmol/L (8-16); BILIRUBIN - TOTAL 0.23 mg/dL (0.2-1.3); CALCIUM 9.1 mg/dL (8.5-10.1); CARBON DIOXIDE 35.1 mmol/L (21.0-32.0); CREATININE - SERUM 1.5 mg/dL (0.6-1.3); MAGNESIUM - SERUM 1.5 mg/dL (1.8-2.4); POTASSIUM - SERUM 4.6 mmol/L (3.5-5.1); PROTEIN - SERUM 5.7 g/dL (6.4-8.2)
--- NOTE | 2020-12-14 08:28 | NUR ---
PATIENT IS CONTINUING TO REFUSE THERAPY, WE WILL NOT BE ABLE TO ACCEPT HER INTO INPATIENT REHAB. PLEASE RECONSULT US IF SHE CHANGES HER MIND. THANK YOU FOR THE REFERRAL. CARMELA NEFF RN CLINICAL LIAISON, INPATIENT REHAB.
[2020-12-14 09:00] VITALS: BP 151/76
[2020-12-14] MEDS ORDERED: AMIODARONE HCL200 MG PO (11:41)
[2020-12-14] MEDS ORDERED: CELEXA20 MG PO (11:42)
[2020-12-14] MEDS ORDERED: TESSALON PERLE100 MG PO (11:44)
[2020-12-14] MEDS ORDERED: ZYLOPRIM100 MG PO (11:44)
[2020-12-14] MEDS ORDERED: MUCINEX600 MG PO (11:45)
--- NOTE | 2020-12-14 13:00 | MORECARE ---
CASE MANAGEMENT DISCHARGE SUMMARY PATIENT: CANDACE DO UNIT: [id number] ADM DATE: 12/01/20 AGE: 80 : 42 SEX: F ROOM/BED: D.2135 AUTHOR: GRACE,DOC PHYSICIAN: REFERRING PHYSICIAN: EBONY CHEEMA MD DATE OF SERVICE: 12/14/20 Case Management Discharge Planning Summary DCP REVIEW SUMMARY ANTICIPATED D/C DATE: 12/14/2020 EXPECTED LOS : 13 CASE STATUS: DCP Initiated INITIAL REVIEW: 12/01/2020 INITIAL REVIEWER: Mee Rapp FINAL DISCHARGE DISPOSITION: 06 : Discharged/Trans to Home Under Care of [facility] in Anticipation of Skilled Care FINAL REVIEWER: FINAL REVIEW DATE: DCP [employer] Questions & Answers QUESTION: ANSWER : PATIENT: CANDACE DO ENCOUNTER: [id number] MEDICAL RECORD#: [id number] ADMISSION DATE: 12/01/2020 DISCHARGE DATE: ATTENDING MD: EBONY VALDEZ : AGE: 80 MARITAL STATUS: M DC PLAN ID: [id number] FACILITY: [facility] PRINTED ON: 12/14/20 13:00 CT All edits/amendments must be made on the electronic document DICTATION DATE: 12/14/20 1300 CIVIL LITIGATION ATTORNEY: CAMILLE 12/14/20 1300 RPT#: [id number] DC DATE: STATUS: ADM IN [facility] [address] [place] [address] END OF REPORT
--- NOTE | 2020-12-14 13:11 | MORECARE ---
CASE MANAGEMENT DISCHARGE SUMMARY PATIENT: CANDACE DO UNIT: [id number] ADM DATE: 12/01/20 AGE: 80 : 44 SEX: F ROOM/BED: D.9945 AUTHOR: MELI EDWARDS PHYSICIAN: REFERRING PHYSICIAN: EBONY CHEEMA MD DATE OF SERVICE: 12/14/20 Case Management Discharge Planning Summary DCP REVIEW SUMMARY ANTICIPATED D/C DATE: 12/14/2020 EXPECTED LOS : 13 CASE STATUS: DCP Initiated INITIAL REVIEW: 12/01/2020 INITIAL REVIEWER: Mee Rapp FINAL DISCHARGE DISPOSITION: 06 : Discharged/Trans to Home Under Care of Organized Home Health Service in Anticipation of Skilled Care FINAL REVIEWER: FINAL REVIEW DATE: DCP Focus Questions & Answers DCP Screen QUESTION: ANSWER High Risk Factors: : Hosp related to CHF, COPD, DM, End Stage Ds, CVA, CA DCP Evaluation QUESTION: ANSWER Patient gives permission to discuss discharge plans with: (name, relationship and number) : KATJA DO SPOUSE [phone] Patient's ability to cope with chronic illness : d. No chronic illness Patient's current cognitive status: : *Oriented to person, place, situation, time and present Family / Caregiver's ability to cope with chronic illness: : b. Minimal (occasionally not dependable to meet pt's. needs, can meet pt's. basic ADL's) Patient and/or caregiver agree upon recommended discharge plan? : Yes Physical Status: : Partial care dependence Family / Caregiver's ability to cope with chronic illness: : a. Adequate (ability to meet patient's medical needs, ensures patient attends medical appts.) Functional screen assessment: : Noticeable poor ADL management Does the patient have the ability to pay for or attain post discharge needs / services? : Yes Partial Dependence, assistance required for: : Bathing Partial Dependence, assistance required for: : Dressing Living Arrangements: : Home with Spouse/Significant Other Is there a likelihood that the patient will require additional services to return to the preadmission environment? : N/A Baseline cognitive status: : *Oriented to person, place, situation, time and present Living arrangements comments: : SPOUSE PROVIDES ASSISTANCE AT HOME Patient with capacity for self-care or can be cared for in same environment as prior to hospitalization? 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 : Yes Does Patient have transportation to get home and to follow-up medical appointments when discharged from the hospital? : Yes Planned post hospital services covered by insurance plan? : Yes Would patient like to participate in any Care Coordination programs (if applicable): : Not applicable Does the patient have electricity at home? : Yes Does the patient have running water in their house? : Yes Equipment in use: : Cane - Single Leg Equipment in use: : Home Oxygen with Nasal Cannula Equipment in use: : Nebulizer Equipment in use: : Shower Chair Equipment in use: : Walker - Standard Mental health screen: : No mental health history Psychosocial status: : Independent adult (65+) Abuse/Neglect: : None Resources / Services in place: : None DCP Re-evaluation QUESTION: ANSWER Would patient like to participate in any Care Coordination programs (if applicable): : Not applicable PATIENT: CANDACE DO ENCOUNTER: [id number] MEDICAL RECORD#: [id number] ADMISSION DATE: 12/01/2020 DISCHARGE DATE: ATTENDING MD: EBONY VALDEZ : AGE: 80 MARITAL STATUS: M DC PLAN ID: [id number] FACILITY: [facility] PRINTED ON: 12/14/20 13:11 CT All edits/amendments must be made on the electronic document DICTATION DATE: 12/14/20 1311 REMOTELY PILOTED VEHICLE CONTROLLER: CAMILLE 12/14/20 1311 RPT#: [id number] DC DATE: STATUS: ADM IN [facility] [address] [place] [address] END OF REPORT
--- NOTE | 2020-12-14 13:24 | MORECARE ---
CASE MANAGEMENT DISCHARGE SUMMARY PATIENT: CANDACE DO UNIT: [id number] ADM DATE: 12/01/20 AGE: 80 : 42 SEX: F ROOM/BED: D.4056 AUTHOR: GRACE,DOC PHYSICIAN: REFERRING PHYSICIAN: EBONY CHEEMA MD DATE OF SERVICE: 12/14/20 Case Management Discharge Planning Summary COMMENTS ENTERED DATE: 12/14/20 13:09 CT COMMENT TYPE: Discharge Planning REVIEWER: Mee Rapp CM met with patient to complete discharge planning assessment and offer availability of needed services. Patient states that she lives independently at home with help from her spouse prior to admission. Spouse Dominick Do present in room at time of DCP and verified that home environment is safe and has electricity and running water. Patient and spouse deny need for transportation and state that they have funds for services and medications if needed. PCP is Dr. Kasper and patient uses [facility] in [place]. CM offered and discussed home health, rehab services, and need for any medical equipment. HAJA form signed for home health care to eval and treat. Pt has multiple home medical devices in place prior to admission. Does have home oxygen and nebs, but is not able to provide the name of DME. Transportation home will be provided by patients spouse who states he is comfortable transporting patient and daughter will be at home to assist with needed ADL's if necessary. Patient verbalized understanding of signed forms. IMM served, and signed copy placed on chart. HAJA form signed for home health needs at this time, placed on chart. DCP REVIEW SUMMARY ANTICIPATED D/C DATE: 12/14/2020 EXPECTED LOS : 13 CASE STATUS: DCP Initiated INITIAL REVIEW: 12/01/2020 INITIAL REVIEWER: Mee Rapp FINAL DISCHARGE DISPOSITION: 06 : Discharged/Trans to Home Under Care of Organized Home Health Service in Anticipation of Skilled Care FINAL REVIEWER: FINAL REVIEW DATE: DCP Focus Questions & Answers DCP Screen QUESTION: ANSWER High Risk Factors: : Hosp related to CHF, COPD, DM, End Stage Ds, CVA, CA DCP Evaluation QUESTION: ANSWER Patient gives permission to discuss discharge plans with: (name, relationship and number) : DOMINICK DO SPOUSE [phone] Patient's ability to cope with chronic illness : d. No chronic illness Patient's current cognitive status: : *Oriented to person, place, situation, time and present Family / Caregiver's ability to cope with chronic illness: : b. Minimal (occasionally not dependable to meet pt's. needs, can meet pt's. basic ADL's) Patient and/or caregiver agree upon recommended discharge plan? : Yes Physical Status: : Partial care dependence Family / Caregiver's ability to cope with chronic illness: : a. Adequate (ability to meet patient's medical needs, ensures patient attends medical appts.) Functional screen assessment: : Noticeable poor ADL management Does the patient have the ability to pay for or attain post discharge needs / services? : Yes Partial Dependence, assistance required for: : Bathing Partial Dependence, assistance required for: : Dressing Living Arrangements: : Home with Spouse/Significant Other Is there a likelihood that the patient will require additional services to return to the preadmission environment? : N/A Baseline cognitive status: : *Oriented to person, place, situation, time and present Living arrangements comments: : SPOUSE PROVIDES ASSISTANCE AT HOME Patient with capacity for self-care or can be cared for in same environment as prior to hospitalization? 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 : Yes Does Patient have transportation to get home and to follow-up medical appointments when discharged from the hospital? : Yes Planned post hospital services covered by insurance plan? : Yes Would patient like to participate in any Care Coordination programs (if applicable): : Not applicable Does the patient have electricity at home? : Yes Does the patient have running water in their house? : Yes Equipment in use: : Cane - Single Leg Equipment in use: : Home Oxygen with Nasal Cannula Equipment in use: : Nebulizer Equipment in use: : Shower Chair Equipment in use: : Walker - Standard Mental health screen: : No mental health history Psychosocial status: : Independent adult (65+) Abuse/Neglect: : None Resources / Services in place: : None DCP Re-evaluation QUESTION: ANSWER Would patient like to participate in any Care Coordination programs (if applicable): : Not applicable PATIENT: CANDACE DO ENCOUNTER: [id number] MEDICAL RECORD#: [id number] ADMISSION DATE: 12/01/2020 DISCHARGE DATE: ATTENDING MD: EBONY VALDEZ : AGE: 80 MARITAL STATUS: M DC PLAN ID: [id number] FACILITY: [facility] PRINTED ON: 12/14/20 13:24 CT All edits/amendments must be made on the electronic document DICTATION DATE: 12/14/20 132 SEARCH MARKETING COORDINATOR: DM 12/14/20 1324 RPT#: [id number] DC DATE: STATUS: ADM IN [facility] [address] [place] [address] END OF REPORT
--- NOTE | 2020-12-14 14:21 | NUR ---
SALINE LOCK REMOVED, DISCHARGE PAPERS DISCUSSED WITH PATIENT AND . TO CAR VIA WHEELCHAIR.
--- NOTE | 2020-12-14 14:24 | MORECARE ---
CASE MANAGEMENT DISCHARGE SUMMARY PATIENT: CANDACE DO UNIT: [id number] ADM DATE: 12/01/20 AGE: 80 : 42 SEX: F ROOM/BED: D.0890 AUTHOR: GRACE,DOC PHYSICIAN: REFERRING PHYSICIAN: EBONY CHEEMA MD DATE OF SERVICE: 12/14/20 Case Management Discharge Planning Summary COMMENTS ENTERED DATE: 12/14/20 13:09 CT COMMENT TYPE: Discharge Planning REVIEWER: Mee Rpap CM met with patient to complete discharge planning assessment and offer availability of needed services. Patient states that she lives independently at home with help from her spouse prior to admission. Spouse Dominick Do present in room at time of DCP and verified that home environment is safe and has electricity and running water. Patient and spouse deny need for transportation and state that they have funds for services and medications if needed. PCP is Dr. Kasper and patient uses [facility] pharmacy in [place]. CM offered and discussed home health, rehab services, and need for any medical equipment. HAJA form signed for home health care to eval and treat. Pt has multiple home medical devices in place prior to admission. Does have home oxygen and nebs, but is not able to provide the name of DME. Transportation home will be provided by patients spouse who states he is comfortable transporting patient and daughter will be at home to assist with needed ADL's if necessary. Patient verbalized understanding of signed forms. IMM served, and signed copy placed on chart. HAJA form signed for home health needs at this time, placed on chart. DCP REVIEW SUMMARY ANTICIPATED D/C DATE: 12/14/2020 EXPECTED LOS : 13 CASE STATUS: DCP Initiated INITIAL REVIEW: 12/01/2020 INITIAL REVIEWER: Mee Rapp FINAL DISCHARGE DISPOSITION: 06 : Discharged/Trans to Home Under Care of Organized Home Health Service in Anticipation of Skilled Care FINAL REVIEWER: FINAL REVIEW DATE: DCP Focus Questions & Answers DCP Screen QUESTION: ANSWER High Risk Factors: : Hosp related to CHF, COPD, DM, End Stage Ds, CVA, CA DCP Evaluation QUESTION: ANSWER Patient gives permission to discuss discharge plans with: (name, relationship and number) : DOMINICK DO SPOUSE [phone] Patient's ability to cope with chronic illness : d. No chronic illness Patient's current cognitive status: : *Oriented to person, place, situation, time and present Family / Caregiver's ability to cope with chronic illness: : b. Minimal (occasionally not dependable to meet pt's. needs, can meet pt's. basic ADL's) Patient and/or caregiver agree upon recommended discharge plan? : Yes Physical Status: : Partial care dependence Family / Caregiver's ability to cope with chronic illness: : a. Adequate (ability to meet patient's medical needs, ensures patient attends medical appts.) Functional screen assessment: : Noticeable poor ADL management Does the patient have the ability to pay for or attain post discharge needs / services? : Yes Partial Dependence, assistance required for: : Bathing Partial Dependence, assistance required for: : Dressing Living Arrangements: : Home with Spouse/Significant Other Is there a likelihood that the patient will require additional services to return to the preadmission environment? : N/A Baseline cognitive status: : *Oriented to person, place, situation, time and present Living arrangements comments: : SPOUSE PROVIDES ASSISTANCE AT HOME Patient with capacity for self-care or can be cared for in same environment as prior to hospitalization? : Yes Results of this evaluation have been discussed with: : Patient Results of this evaluation have been discussed with: : Spouse Physical environment modification needed / anticipated for discharge: : N/A Medication Management: : Patient states can afford medications Medication Management: : Patient states they do have transportation to cloth picker medications Medication Management: : Patient states can read and understand medication labels Pharm[facility] name([facility]): : [facility] [place] Planned post hospital services available for patient? : Yes Does Patient have transportation to get home and to follow-up medical appointments when discharged from the hospital? : Yes Planned post hospital services covered by insurance plan? : Yes Would patient like to participate in any Care Coordination programs (if applicable): : Not applicable Does the patient have electricity at home? : Yes Does the patient have running water in their house? : Yes Equipment in use: : Cane - Single Leg Equipment in use: : Home Oxygen with Nasal Cannula Equipment in use: : Nebulizer Equipment in use: : Shower Chair Equipment in use: : Walker - Standard Mental health screen: : No mental health history Psychosocial status: : Independent adult (65+) Abuse/Neglect: : None Resources / Services in place: : None DCP Re-evaluation QUESTION: ANSWER Would patient like to participate in any Care Coordination programs (if applicable): : Not applicable PATIENT: CANDACE DO ENCOUNTER: [id number] MEDICAL RECORD#: [id number] ADMISSION DATE: 12/01/2020 DISCHARGE DATE: 12/14/2020 ATTENDING MD: EBONY VALDEZ : AGE: 80 MARITAL STATUS: M DC PLAN ID: [id number] FACILITY: [facility] PRINTED ON: 12/14/20 14:24 CT All edits/amendments must be made on the electronic document DICTATION DATE: 12/14/20 142 DIRECTOR GROUP SALES: CAMILLE 12/14/20 1424 RPT#: [id number] DC DATE:12/14/20 STATUS: DIS IN [facility] [address] [place] [address] END OF REPORT
== END 2020-12-14 14:22 | disposition home health service (06) | DRG 871 ==
LOC: D.ER 21:55 → D.ICU 23:14 → D.M2 12-07 14:46
PROVIDERS: Emergency Medicine; Family Medicine; Internal Medicine; Internal Medicine Pulmonary Disease; Student in an Organized Health Care Education/Training Program; ADMIT Family Medicine Adult Medicine; ATTEND Family Medicine Adult Medicine
PROC: 5A09357 Assistance with Respiratory Ventilation, Less than 24 Consecutive Hours, Continuous Positive Airway Pressure (ICD-10-PCS; principal; 2020-12-02)
DX: A41.9 Sepsis, unspecified organism (principal); J18.9 Pneumonia, unspecified organism; R65.21 Severe sepsis with septic shock; N17.0 Acute kidney failure with tubular necrosis; J96.01 Acute respiratory failure with hypoxia; R57.0 Cardiogenic shock; I21.A1 Myocardial infarction type 2; I50.23 Acute on chronic systolic (congestive) heart failure; I47.1 Supraventricular tachycardia; I13.0 Hypertensive heart and chronic kidney disease with heart failure and stage 1 through stage 4 chronic kidney disease, or unspecified chronic kidney disease; I95.9 Hypotension, unspecified; D72.829 Elevated white blood cell count, unspecified; F41.8 Other specified anxiety disorders; J44.9 Chronic obstructive pulmonary disease, unspecified; D50.9 Iron deficiency anemia, unspecified; I49.9 Cardiac arrhythmia, unspecified; N18.9 Chronic kidney disease, unspecified; E88.09 Other disorders of plasma-protein metabolism, not elsewhere classified; G47.00 Insomnia, unspecified; I48.91 Unspecified atrial fibrillation